=== PATIENT | female | born 1965 ===

== ENCOUNTER 2024-12-23 07:11 | Day surgery (SDC) | payer BC ==
[2024-12-21 16:20] LABS: Absolute Eosinophils 0.1 K/uL (0-0.5); Absolute Lymphocytes (CBC) 1.8 K/uL (0.7-4.9); Absolute Monocytes 0.6 K/uL (0.1-1.3); Basophils % 0.7 % (0-1.3); Eosinophils % 1.8 % (0-4.4); Hematocrit 41.3 % (36.0-45.0); Hemoglobin 13.9 g/dL (12.0-15.0); Lymphocytes % 27.9 % (15.3-44.8); MCH 30.5 pg (27.0-35.0); MCHC 33.6 g/dL (32.0-36.0); MCV 90.7 fL (80-100); Monocytes % 8.9 % (3.3-12.3); Neutrophils % 60.7 % (41.7-73.7); Platelets 224 thou/uL (152-406); RBC Red Blood Cell Count 4.56 M/uL (3.86-4.86)
[2024-12-21 16:30] LABS: Anion Gap 8.8 mEq/L (5.0-15.0); Potassium 3.8 mEq/L (3.5-5.1)
[2024-12-23] MEDS: Ringers Lactate 1,000 ML IV ONE (07:55)
[2024-12-23] MEDS ORDERED: LIDOCAINE 1% MPF 5 ML VIAL ONE (08:59)
[2024-12-23] MEDS ORDERED: propofoL 200 MG/20 ML VIAL IV ONE ×2 (08:59)
[2024-12-23 10:24] VITALS: BP 109/50; TEMP 98; O2SAT 98
--- NOTE | 2024-12-26 11:36 | EKG ---
Test Date: 2024-12-21 Test Time: 15:58:01 [employer] [facility]: [facility] MEASUREMENT RESULTS: Intervals: Rate: 65 ID: [id number] QRSD: 80 QT: 416 QTc: 432 [place]: P: 48 ID: [id number] QRS: 67 T: 49 INTERPRETIVE STATEMENTS: Normal sinus rhythm Normal ECG No previous ECG available for comparison Electronically Signed On 12-26-24 11:24:46 CDT by Ki Porras
== END 2024-12-23 10:33 | disposition home or self-care (01) ==
LOC: OR 07:11
PROVIDERS: ATTEND Surgery
PROC: 0DBL8ZX Excision of Transverse Colon, Via Natural or Artificial Opening Endoscopic, Diagnostic (ICD-10-PCS; principal; 2024-12-23 09:00)
DX: Z12.11 Encounter for screening for malignant neoplasm of colon (principal); K63.5 Polyp of colon; K64.8 Other hemorrhoids; K57.30 Diverticulosis of large intestine without perforation or abscess without bleeding
CPT/HCPCS: 93005; 85025; 80048; 36415; 88305; 45380; J2704 ×2; J2003; J7120